=== PATIENT | male | born 2000 | race American Indian/Alaskan Native ===

== ENCOUNTER 2020-07-05 22:36 | Emergency (ER) | payer SELFPAY ==
[2020-07-05 22:51] VITALS: BP 117/73
[2020-07-06] MEDS ORDERED: ETOMIDATE 20 MG/10 ML INJ IV ONE (06:21)
[2020-07-06] MEDS ORDERED: ROCURONIUM 50 MG/5 ML INJ IV ONE (06:23)
== END 2020-07-06 02:30 | disposition left against medical advice (07) ==
LOC: ED 22:36
DX: M54.2 Cervicalgia (principal); Z53.21 Procedure and treatment not carried out due to patient leaving prior to being seen by health care provider